=== PATIENT | male | born 1960 | race Caucasian/White ===

== ENCOUNTER → 2020-11-30 10:41 | Outpatient (CLI) | payer OTHER, MEDICAID, SELFPAY ==
[2020-11-30 20:32] LABS: Add Manual Diff / Slide Review NO; Basophils Absolute Auto 100 /uL (0-100); Basophils Percent Auto 1.3 % (0-2); Eosinophils Absolute Auto 100 /uL (0-450); Eosinophils Percent Auto 1.9 % (2-4); Hematocrit 43.2 % (41-53); Hemoglobin 14.3 g/dL (13.5-17.5); Lymphocytes Absolute Auto 1800 /uL (1100-4500); Lymphocytes Percent Auto 30.5 % (25-40); Mean Corpuscular Hemoglobin 30.6 PG (26-34); Mean Corpuscular Volume 92.6 fL (80-100); Monocytes Absolute Auto 700 /uL (0-900); Monocytes Percent Auto 11.4 % (3-14); Neutrophils Absolute Auto 3300 /uL (1500-7000); Neutrophils Percent Auto 54.9 % (50-75); Platelet Count 259 X10^3/uL (150-400); Red Blood Cell Count 4.67 X10^6/uL (4.5-5.9); Red Cell Distribution Width 13.7 % (11.6-14.8)
[2020-11-30 20:43] LABS: Alanine Aminotransferase 22 IU/L (<50); Albumin 4.2 g/dL (3.5-5.0); Albumin Globulin Ratio 1.6 (1.0-2.8); Alkaline Phosphatase 85 U/L (38-126); Aspartate Aminotransferase 29 IU/L (17-59); BUN Creatinine Ratio 24.3 (6-22); Bilirubin Total 0.5 mg/dL (0.2-1.3); Blood Urea Nitrogen 17 mg/dL (9-20); Calcium 9.4 mg/dL (8.4-10.2); Carbon Dioxide 28 mmol/L (22-32); Chloride 105 mmol/L (98-107); Cholesterol 173 mg/dL (140-199); Estimated Glomerular Filt Rate > 60.0 mL/min (>60); Globulin 2.7 g/dL (1.7-4.1); Glucose 99 mg/dL (70-100); HDL Cholesterol 74 mg/dL (40-60); HEMOLYSIS < 15 (0-50); LDL Cholesterol Calculated 88 mg/dL (<100); Potassium 4.4 mmol/L (3.4-5.1); Sodium 139 mmol/L (137-145); Total Protein 6.9 g/dL (6.3-8.2); Triglycerides 55 mg/dL (35-150)
== END ==
PROVIDERS: PCP Physician Assistant; Visit Provider Physician Assistant
DX: F17.200 Nicotine dependence, unspecified, uncomplicated (principal); Z13.220 Encounter for screening for lipoid disorders
CPT/HCPCS: 80053; 80061; 85025

== ENCOUNTER → 2023-01-24 08:28 | Outpatient (CLI) | payer OTHER, MEDICAID, SELFPAY ==
[2023-01-24 19:23] LABS: Add Manual Diff / Slide Review NO; Basophils Absolute Auto 100 /uL (0-100); Basophils Percent Auto 1.2 % (0-2); Eosinophils Absolute Auto 200 /uL (0-450); Eosinophils Percent Auto 3.2 % (2-4); Hematocrit 46.3 % (41-53); Lymphocytes Absolute Auto 2400 /uL (1100-4500); Lymphocytes Percent Auto 33.1 % (25-40); Mean Corpuscular HGB Conc 34.5 % (30-36); Mean Corpuscular Hemoglobin 31.1 PG (26-34); Mean Corpuscular Volume 90.2 fL (80-100); Monocytes Absolute Auto 700 /uL (0-900); Monocytes Percent Auto 10.1 % (3-14); Neutrophils Absolute Auto 3800 /uL (1500-7000); Neutrophils Percent Auto 52.4 % (50-75); Platelet Count 270 X10^3/uL (150-400); Red Blood Cell Count 5.13 X10^6/uL (4.5-5.9); Red Cell Distribution Width 13.5 % (11.6-14.8); White Blood Cell Count 7.2 X10^3/uL (4.5-11.0)
[2023-01-24 19:37] LABS: Alanine Aminotransferase 23 IU/L (<50); Albumin 4.6 g/dL (3.5-5.0); Albumin Globulin Ratio 1.5 (1.0-2.8); Alkaline Phosphatase 85 U/L (38-126); Aspartate Aminotransferase 22 IU/L (17-59); BUN Creatinine Ratio 25.9 (6-22); Bilirubin Total 0.6 mg/dL (0.2-1.3); Blood Urea Nitrogen 21 mg/dL (9-20); Carbon Dioxide 28 mmol/L (22-32); Chloride 102 mmol/L (98-107); Cholesterol 221 mg/dL (140-199); Estimated Glomerular Filt Rate > 60 mL/min (>60); Glucose 107 mg/dL (80-110); HDL Cholesterol 68 mg/dL (40-60); HEMOLYSIS < 15 (0-50); LDL Cholesterol Calculated 133 mg/dL (<100); Potassium 4.5 mmol/L (3.4-5.1); Sodium 139 mmol/L (137-145); Total Protein 7.6 g/dL (6.3-8.2); Triglycerides 101 mg/dL (35-150)
[2023-01-24 19:58] LABS: Prostate Specific Antigen Scrn 2.04 ng/mL (0.1-4.0)
[2023-01-24 20:12] LABS: Hep C Virus Ab w/Reflex Quant NEGATIVE s/c (NEGATIVE)
== END ==
PROVIDERS: PCP Physician Assistant; Visit Provider Physician Assistant
DX: R39.11 Hesitancy of micturition (principal); Z13.6 Encounter for screening for cardiovascular disorders; Z12.5 Encounter for screening for malignant neoplasm of prostate; Z11.59 Encounter for screening for other viral diseases; Z79.899 Other long term (current) drug therapy
CPT/HCPCS: 80053; 80061; 85025; 86803; G0103

== ENCOUNTER 2023-06-06 11:36 | Day surgery (SDC) | payer OTHER, MEDICAID, SELFPAY ==
--- NOTE | 2023-06-06 13:09 | PM.HP.1 ---
History of Present Illness History of Present Illness Date Patient Seen: 06/06/23 Time Patient Seen: 13:09 Chief complaint: Colonoscopy Narrative: Bridger is a 62 year old man here for a screening colonoscopy. He has never had 1 before. No family history of colon cancer. No heart or lung problems. PFSH Social History Smoking Status: Current every day smoker (10-15 cigarettes daily) Meds Home Medications and Allergies Home Medications Medication Instructions Recorded Confirmed Type albuterol sulfate 90 mcg/actuation See Rx Instructions .Route 01/21/23 01/21/23 Rx aerosol inhaler .COMPLEX #8.5 grams fluticasone 250 mcg-salmeterol 50 See Rx Instructions .Route 01/21/23 01/21/23 Rx mcg/dose blistr powdr for .COMPLEX #60 ea inhalation (Advair Diskus) peg 3350-electrolytes 236 240 ml PO Q10M #4,000 mL 03/25/23 Rx gram-22.74 gram-6.74 gram-5.86 gram solution (Golytely) Allergies Allergy/AdvReac Type Severity Reaction Status Date / Time No Known Drug Allergies Allergy Verified 01/21/23 08:42 Exam Const General: healthy appearing Assessment & Plan Assessment and plan (1) Colon cancer screening: Status: Acute Plan We reviewed the risks and benefits of colonoscopy for colon cancer screening and he would like to proceed.
[2023-06-06 13:32] VITALS: BP 159/91; PULSE 97; RESP 16; TEMP 36.8; O2SAT 98
[2023-06-06] MEDS: LACTATED RINGERS 1,000 ML 84 ML IV (13:41)
[2023-06-06 14:12] VITALS: BP 93/59; PULSE 67; RESP 18; TEMP 36.7; O2SAT 96
--- NOTE | 2023-06-06 14:14 | PM.OP.COLON ---
Operative Date/Time/Diagnoses Date of procedure: 06/06/23 Time of procedure: 14:14 Pre-op diagnosis: Colon cancer screening Post-op diagnosis: same Procedure & Clinicians Study performed: Colonoscopy Same procedure as scheduled: Yes Surgeon: Diego Rebolledo Procedure Notes Procedure in detail: Surgeon: Diego Rebolledo MD Anesthesia: Calos Day MD Procedure: The patient was brought to the endoscopy suite, placed in left lateral decubitus position. The patient was connected to monitoring devices. A time-out was performed. Sedation was administered. Once the patient was adequately sedated, a digital rectal exam was performed and was normal except for an enlarged but otherwise smooth prostate. The scope was then inserted and advanced to the cecum where the appendiceal orifice was identified and photographed. The scope was then slowly withdrawn over greater than 6 minutes. The mucosa was thoroughly inspected. No polyps were found. No other abnormalities were seen. The scope was retroflexed in the rectum. No other abnormalities were seen. The scope was straightened and removed. The patient was awakened and brought to recovery. Scope withdrawal time: 10 minutes Sedation time: 18 minutes EBL: 0 Findings: Normal colon Post-procedure Recommendations: Colonoscopy in 10 years Disposition: PACU
[2023-06-06 14:17] VITALS: BP 97/62; PULSE 64; RESP 18; O2SAT 97
[2023-06-06 14:23] VITALS: BP 112/76; PULSE 73; RESP 18; TEMP 37; O2SAT 98
[2023-06-06 14:28] VITALS: BP 112/81; PULSE 79; RESP 18; O2SAT 98
== END 2023-06-06 14:42 | disposition home or self-care (01) ==
PROVIDERS: PCP Physician Assistant; Referring Provider Surgery; Visit Provider Surgery
PROC: 0DJD8ZZ Inspection of Lower Intestinal Tract, Via Natural or Artificial Opening Endoscopic (ICD-10-PCS; CPT 45378; principal; 2023-06-06 13:00)
DX: Z12.11 Encounter for screening for malignant neoplasm of colon (principal); N40.0 Benign prostatic hyperplasia without lower urinary tract symptoms
CPT/HCPCS: 45378; J2704

== ENCOUNTER → 2023-06-26 08:56 | Outpatient (CLI) | payer OTHER, MEDICAID, SELFPAY ==
[2023-06-26 20:30] LABS: Prostate Specific Antigen Scrn 2.14 ng/mL (0.1-4.0)
[2023-06-27 10:36] LABS: TSH w/ Reflex to FT4 1.38 uIU/mL (0.47-4.68)
== END ==
PROVIDERS: PCP Physician Assistant; Visit Provider Physician Assistant
DX: Z12.5 Encounter for screening for malignant neoplasm of prostate (principal); R63.4 Abnormal weight loss
CPT/HCPCS: 81002; 84443; G0103

== ENCOUNTER 2024-05-11 18:19 | Emergency (ER) | payer SELFPAY ==
[2024-05-11 18:26] VITALS: BP 154/84; PULSE 97; RESP 13; TEMP 36.6; O2SAT 97; BMI 20.5
--- NOTE | 2024-05-11 18:29 | DI.RAD.S_ITS ---
PROCEDURE: XR CHEST 2V INDICATIONS: Cough, Shortness of breath TECHNIQUE: 2 views of the chest were acquired. COMPARISON: [facility] ([place]), CR, XR CHEST 2V, 11/16/2020, 11:31. FINDINGS: Surgical changes and devices: None. Lungs and pleura: Lungs are clear. No pleural effusions or pneumothorax. Mediastinum: Mediastinal contours are normal. Heart size is normal. Bones and chest wall: No suspicious bony abnormalities. Soft tissues appear unremarkable. IMPRESSION: No acute cardiopulmonary abnormalities or focal consolidation. Dictated by: Gorge Roman M.D. on 05/11/2024 at 19:20 Approved by: Gorge Roman M.D. on 05/11/2024 at 19:21
[2024-05-11 19:14] LABS: COVID-19 CEPHEID 4-PLEX PCR Negative (Negative); Influenza A - CEPHEID Flu A POSITIVE (NEGATIVE); Influenza B - CEPHEID Flu B NEGATIVE (NEGATIVE); Respiratory Syncytial Virus Negative (Negative)
--- NOTE | 2024-05-11 19:40 | ED_ITS ---
HPI - General Adult General Chief complaint: Upper Respiratory Symptoms Stated complaint: flu symptoms x6 days, getting worse w, SOB Time Seen by Provider: 05/11/24 19:40 Source: patient, RN notes reviewed and old records reviewed Mode of arrival: Ambulatory Limitations: no limitations History of Present Illness HPI narrative: 63-year-old male with tobacco use who presents with complaint of subjective fevers, myalgias, nasal congestion and cough. Patient states no chest pain did not have an episode of shortness of breath the other day she was inhaler which was helpful. Has not required using inhalers since then. States or vomiting. No diarrhea. No new swelling in extremities. Patient states feels like he has the flu. He is not on any prescription medications. Does have albuterol because he has had reactive airway issues in the past. Patient states no recent major surgeries. Denies any drug allergies. Does use tobacco daily, patient. Recreational drugs. He does live on [facility]. Related Data Previous Rx's Medication Instructions Recorded tamsulosin 0.4 mg capsule (Flomax) 0.4 mg PO BEDTIME #30 caps 07/01/23 tadalafil 5 mg tablet (Cialis) 5 mg PO DAILY Patient failed 08/14/23 tamsulosin #30 tabs albuterol sulfate 90 mcg/actuation See Rx Instructions .Route 01/06/24 aerosol inhaler .COMPLEX #8.5 grams fluticasone 250 mcg-salmeterol 50 1 ea PO Q12H #60 ea 01/20/24 mcg/dose blistr powdr for inhalation Allergies Allergy/AdvReac Type Severity Reaction Status Date / Time No Known Drug Allergies Allergy Verified 06/26/23 07:39 Review of Systems Review of Systems ROS Unobtainable: All systems reviewed & are unremarkable except as noted in HPI and below Patient History Medical History Post-void dribbling Bladder outlet obstruction Benign prostatic hyperplasia BPH with obstruction/lower urinary tract symptoms Social History Smoking Status: Current every day smoker alcohol intake: former Smoking Status: Current every day smoker Exam Narrative Exam Narrative: GEN: well nourished, well appearing [default value], alert and oriented x [default value], patient appears to be in mild distress. HEENT: Atraumatic, pupils are equal round reactive to light, extraocular movements are intact, nares bilateral clear, TMs are clear with no fluid, there is no conjunctival pallor. Throat is clear without any exudates, erythema, tonsillar enlargement or uvular deviation HEART: Regular rate and rhythm without murmur, clicks, rubs. No carotid bruits, pulses are equal in upper and lower extremities LUNGS:Lungs clear to auscultation, no wheezes, rales, crackles, chest moves symmetrically, no tachypnea or accessory muscle use. Speaks in full sentences ABD:bowel sounds normal, soft, non-tender, no guarding, rebound, rigidity, no masses noted, no hepatosplenomegaly MSCL: Non-tender, no muscle atrophy, muscles strength 5/5 upper and lower extremities, full range of motion, normal gait NEURO:CN 2-12 intact, sensation normal Initial Vital Signs Initial Vital Signs: Vital Signs Temperature 98 F 05/11/24 18:26 Pulse Rate 97 H 05/11/24 18:26 Respiratory Rate 13 05/11/24 18:26 Blood Pressure 154/84 H 05/11/24 18:26 Pulse Oximetry 97 05/11/24 18:26 Oxygen Delivery Method Room Air 05/11/24 18:26 Course Orders Ordered: Discontinued Medications Dexamethasone (Dexamethasone 10 Mg/Ml Vial) 10 mg PO NOW ONE Stop: 05/11/24 19:51 Last Admin: 05/11/24 20:01 Dose: 10 mg Documented By: [facility] Vital Signs Vital signs: Vital Signs - 8 hr 05/11/24 18:26 Temperature 98 F Pulse Rate 97 H Respiratory Rate 13 Blood Pressure 154/84 H Pulse Oximetry 97 Oxygen Delivery Method Room Air Medical Decision Making Lab Data Labs: Lab Results 05/11/24 Range/Units 18:30 SARS-CoV-2 (PCR) Negative (Negative) Influenza A (RT-PCR) Flu a positive H (NEGATIVE) Influenza B (RT-PCR) Flu b negative (NEGATIVE) RSV (PCR) Negative (Negative) Imaging Data Chest x-ray: Radiologist's Impression: [address] [address] XRay Report Signed Patient: Bridger Whiteside MR#: [id number] : 1960 Acct:[id number] Age/Sex: 63 / M Date of Service: 05/11/24 Loc: ED Accession Number: [id number] Procedure: XR chest 2V Ordering Provider: Aarti Cloud D.O. PROCEDURE: XR CHEST 2V INDICATIONS: Cough, Shortness of breath TECHNIQUE: 2 views of the chest were acquired. COMPARISON: [facility] ([place]), CR, XR CHEST 2V, 021, 11:31. FINDINGS: Surgical changes and devices: None. Lungs and pleura: Lungs are clear. No pleural effusions or pneumothorax. Mediastinum: Mediastinal contours are normal. Heart size is normal. Bones and chest wall: No suspicious bony abnormalities. Soft tissues appear unremarkable. IMPRESSION: No acute cardiopulmonary abnormalities or focal consolidation. Dictated by: Gorge Roman M.D. on 05/11/2024 at 19:20 Approved by: Gorge Roman M.D. on 05/11/2024 at 19:21 [facility] Narrative Medical decision making narrative: Patient has negative chest xray, positive for influenza on COVID/RSV/influenza swab. Patient does have a history of chronic tobacco use and has had either COPD exacerbation reactive airway secondary to this he has albuterol but no spacer. One was provided along with a training. We will give a dose of dexamethasone prevent any reactive airway patient is not actively wheezing at this time. He was overall well-appearing with benign exam. Discussed return precautions. Discharge Plan Departure Patient Disposition: Home Clinical Impression: Influenza A Instructions: DI for Influenza -- Adult Activity Restrictions/Additional Instructions: You have tested positive for influenza A, this is a viral illness that typically last 7-10 days. Treat fevers with ibuprofen and/or acetaminophen. You can use your albuterol every 4-6 hours as needed. You did receive a dose of dexamethasone which has not oral steroid to help prevent wheezing. I hope you feel improved soon, please return if you have any new chest pain increasing shortness of breath any lightheadedness or passing out, persistent vomiting, new swelling in extremities or other new or concerning changes. Prescriptions: No Action tamsulosin [Flomax] 0.4 mg capsule 0.4 mg PO BEDTIME Qty: 30 1RF albuterol sulfate 90 mcg/actuation HFA aerosol inhaler See Rx Instructions .ROUTE .COMPLEX Qty: 8.5 5RF Dose Instruction: INHALE TWO PUFFS BY MOUTH EVERY 4 TO 6 HOURS NEEDED FOR SHORTNESS OF BREATH OR WHEEZING Rx Instructions: INHALE TWO PUFFS BY MOUTH EVERY 4 TO 6 HOURS NEEDED FOR SHORTNESS OF BREATH OR WHEEZING fluticasone propion-salmeterol 250-50 mcg/dose blister with device 1 ea PO Q12H Qty: 60 5RF tadalafil [Cialis] 5 mg tablet 5 mg PO DAILY Qty: 30 12RF Referrals: Geeta Mota PA-C [Primary Care Provider] - Stand Alone Forms: Patient Portal/API/Survey
[2024-05-11] MEDS: DEXAMETHASONE 10 MG/ML VIAL PO (20:01)
[2024-05-11 20:06] VITALS: BP 165/106; PULSE 83; RESP 14; O2SAT 98
== END 2024-05-11 20:08 | disposition home or self-care (01) ==
PROVIDERS: Emergency Provider Emergency Medicine; PCP Physician Assistant
DX: J10.1 Influenza due to other identified influenza virus with other respiratory manifestations (principal); Z72.0 Tobacco use
CPT/HCPCS: 0241U; 71046; 99283; J1100

== ENCOUNTER → 2025-01-25 09:51 | Outpatient (CLI) | payer OTHER, SELFPAY ==
[2025-01-25 19:21] LABS: Add Manual Diff / Slide Review NO; Hematocrit 46.0 % (41-53); Hemoglobin 15.6 g/dL (13.5-17.5); Lymphocytes Absolute Auto 2200 /uL (1100-4500); Mean Corpuscular HGB Conc 33.9 % (30-36); Mean Corpuscular Hemoglobin 30.6 PG (26-34); Mean Corpuscular Volume 90.1 fL (80-100); Platelet Count 252 X10^3/uL (150-400)
[2025-01-25 19:33] LABS: Alanine Aminotransferase 23 IU/L (<50); Albumin 4.5 g/dL (3.5-5.0); Albumin Globulin Ratio 1.5 (1.0-2.8); Alkaline Phosphatase 90 U/L (38-126); Blood Urea Nitrogen 17 mg/dL (9-20); Calcium 9.8 mg/dL (8.4-10.2); Carbon Dioxide 26 mmol/L (22-32); Chloride 105 mmol/L (98-107); Cholesterol 214 mg/dL (140-199); Estimated Glomerular Filt Rate > 60 mL/min (>60); Globulin 3.0 g/dL (1.7-4.1); Glucose 101 mg/dL (70-99); HDL Cholesterol 80 mg/dL (40-60); HEMOLYSIS < 15 (0-50); Potassium 4.7 mmol/L (3.4-5.1); Sodium 139 mmol/L (137-145); Total Protein 7.5 g/dL (6.3-8.2); Triglycerides 66 mg/dL (35-150)
== END ==
PROVIDERS: PCP Physician Assistant; Visit Provider Physician Assistant
DX: R03.0 Elevated blood-pressure reading, without diagnosis of hypertension (principal); Z13.6 Encounter for screening for cardiovascular disorders; Z79.899 Other long term (current) drug therapy; Z12.5 Encounter for screening for malignant neoplasm of prostate
CPT/HCPCS: 80053; 80061; 85025; G0103